=== PATIENT | female | born 1985 | race Caucasian/White ===

== ENCOUNTER 2016-09-23 16:16 | Emergency (ER) | payer OTHER ==
[~2016-09-23] VITALS: Ht 157.5 cm; Wt 55.8 kg
[2016-09-23 16:16] VITALS: BP_SYST 113
[2016-09-23] MEDS ORDERED: ACETAMINOPHEN 325 MG TABLET PO ONE (16:30)
[2016-09-23] MEDS ORDERED: ONDANSETRON 4 MG ODT TAB PO ONE (16:30)
[2016-09-23 18:41] VITALS: BP_SYST 114
== END 2016-09-23 18:42 | disposition home or self-care (01) ==
LOC: SED 16:16
DX: S09.8XXA Other specified injuries of head, initial encounter (principal); M54.2 Cervicalgia; W22.042A Striking against wall of swimming pool causing other injury, initial encounter; Y93.11 Activity, swimming; Y92.34 Swimming pool (public) as the place of occurrence of the external cause; Y99.8 Other external cause status
CPT/HCPCS: 70450; 70486; 72125; 81025; 99284; Q0162